=== PATIENT | male | born 1940 | race Caucasian/White ===

== ENCOUNTER 2020-09-21 17:02 | Emergency (ER) | payer BC ==
[2020-09-21] MEDS ORDERED: Iopamidol 612 MG/ML 100 ML Bottle ONE (18:03)
[2020-09-21] MEDS ORDERED: Sodium Chloride 0.9% 500 ML IV SCH (18:15)
[2020-09-21 18:52] VITALS: BP 132/68; PULSE 82
--- NOTE | 2020-09-21 19:16 | EDM.PDOC ---
ED HPI GENERAL MEDICAL PROBLEM - General Chief Complaint: General Stated Complaint: Coughing Up Blood Time Seen by Provider: 09/21/20 17:15 Source of Information: Reports: Patient, [facility] Records - History of Present Illness INITIAL COMMENTS - FREE TEXT/NARRATIVE: Pt states he coughed up blood several times over past few weeks No fever No chest pain Has been seen as oupt for transfusions over past several days for anemia of unknown etiology Has been referred to oncology and GI Onset: Gradual Duration: Week(s):, Intermittent Location: Reports: Chest - Related Data Allergies Allergy/AdvReac Type Severity Reaction Status Date / Time lisinopril Allergy Cannot Verified 09/21/20 17:14 Remember Penicillins Allergy Cannot Verified 09/21/20 17:14 Remember Home Meds: Home Meds Acetaminophen 2 tab PO Q4HR PRN 09/20/20 [History] Aloe Vera/Sodium Chloride [[place] Saline Nasal Gel] 1 spray NASBOTH DAILY PRN 09/20/20 [History] Aspirin [Aspirin EC] 1 tab PO DAILY 09/20/20 [History] Baclofen 1 tab PO TID 09/20/20 [History] Budesonide/Formoterol Fumarate [Symbicort 160-4.5 Mcg Inhaler] 2 inh PO BID 09/20/20 [History] Carboxymethylcellulose/Lytes [[place]shan-Stir Oral [place]] 1 spray PO DAILY PRN 09/20/20 [History] Docusate Sodium [Colace] 1 tab PO DAILY PRN 09/20/20 [History] Ferrous Sulfate 2 tab PO BID 09/20/20 [History] Finasteride 1 tab PO DAILY 09/20/20 [History] Fluticasone Propionate [Flovent] 1 spray NASBOTH DAILY 09/20/20 [History] Gabapentin [Neurontin] 1 cap PO DAILY 09/20/20 [History] Insulin Aspart [NovoLOG] 10 units SUBCUT DAILY 09/20/20 [History] Insulin Detemir [Levemir] 54 units SUBCUT DAILY 09/20/20 [History] Insulin Detemir [Levemir] 64 units SUBCUT DAILY 09/20/20 [History] Levothyroxine [Synthroid] 1 tab PO DAILY 09/20/20 [History] Loperamide HCl [Imodium A-D] 1 - 2 tab PO DAILY PRN 09/20/20 [History] Losartan [Cozaar] 1 tab PO DAILY 09/20/20 [History] Mirtazapine 1 tab PO DAILY 09/20/20 [History] Non-Formulary Medication [NF Drug] 3 cap PO Q30D 09/20/20 [History] Propylene Glycol/Peg 400 [Systane Ultra 0.4-0.3% Eye Drp] 1 drop EYEBOTH QID 09/20/20 [History] Tamsulosin [Flomax] 1 cap PO DAILY 09/20/20 [History] Venlafaxine [Effexor] 1 tab PO DAILY 09/20/20 [History] amLODIPine [Norvasc] 1 tab PO DAILY 09/20/20 [History] atorvaSTATin [Lipitor] 1 tab PO DAILY 09/20/20 [History] bisacodyL [Bisacodyl] 1 - 2 tab PO DAILY PRN 09/20/20 [History] buPROPion HCL [Wellbutrin Xl] 1 tab PO DAILY 09/20/20 [History] carvediloL [Carvedilol] 1 tab PO BID 09/20/20 [History] cloNIDine [Catapres] 1 tab PO TID 09/20/20 [History] guaiFENesin/Dextromethorphan [Tussin Dm Syrup] 10 ml PO Q4H 09/20/20 [History] oxyCODONE 1 tab PO Q6HR PRN 09/20/20 [History] polyethylene glycoL 3350 [MiraLAX] 1 dose PO DAILY PRN 09/20/20 [History] rOPINIRole [Requip] 0.5 mg PO DAILY 09/20/20 [History] traZODone HCl [Trazodone HCl] 1 tab PO DAILY 09/20/20 [History] Past Medical History HEENT History: Reports: Hard of Hearing Cardiovascular History: Reports: High Cholesterol, Hypertension Respiratory History: Reports: COPD, Sleep Apnea Genitourinary History: Reports: Chronic Renal Insuffiency Endocrine/Metabolic History: Reports: Diabetes, Type II Dermatologic History: Reports: Seborrheic Dermatitis Social & Family History - Caffeine Use Caffeine Use: Reports: Coffee ED ROS GENERAL - Review of Systems Review Of Systems: See Below HEENT: Reports: No Symptoms Respiratory: Reports: Hemoptysis Cardiovascular: Reports: No Symptoms GI/Abdominal: Reports: No Symptoms ED EXAM, GENERAL - Physical Exam Exam: See Below General Appearance: Alert, WD/WN, No Apparent Distress Throat/Mouth: Other (OP with old blood) Neck: Supple Respiratory/Chest: Decreased Breath Sounds Cardiovascular: Regular Rate, Rhythm GI/Abdominal: Soft, Non-Tender Course - Vital Signs Last Recorded V/S: Last Vital Signs Temp 97.6 F 09/21/20 18:52 Pulse 82 09/21/20 18:52 Resp 17 09/21/20 18:52 BP 132/68 09/21/20 18:52 Pulse Ox 100 09/21/20 18:52 - Orders/Labs/Meds Orders: Active Orders 24 hr Category Date Time Status CXR [Chest 2V] [CR] Stat Exams 09/21/20 17:03 Taken Chest w Cont [CT] Stat Exams 09/21/20 17:54 Taken Sodium Chloride 0.9% [Normal Saline] 500 ml Med 09/21/20 18:15 Active IV .BOLUS Medication Orders Sodium Chloride (Normal Saline) 500 mls @ 1,000 mls/hr IV .BOLUS MARLEN Last Admin: 09/21/20 18:36 Dose: 1,000 mls/hr Documented by: FRANCINE Labs: Laboratory Tests 09/21/20 09/21/20 09/21/20 Range/Units 17:29 17:29 17:29 WBC 11.8 H (4.0-10.2) K/uL RBC 3.90 L (4.33-5.41) M/uL Hgb 10.7 L D (13.1-16.8) g/dL Hct 34.5 L (39.0-49.0) % MCV 88.5 (84.0-98.0) fL MCH 27.4 L (28.2-33.3) pg MCHC 31.0 L (31.7-36.0) g/dL RDW 16.6 H (11.2-14.1) % Plt Count 302 (150-350) K/uL Neut % (Auto) 79.0 (45.0-80.0) % Lymph % (Auto) 10.8 (10.0-50.0) % [place] % (Auto) 8.0 (2.0-14.0) % Eos % (Auto) 1.9 (0.0-5.0) % Baso % (Auto) 0.3 (0.0-2.0) % Neut # (Auto) 9.36 H (1.40-7.00) K/uL Lymph # (Auto) 1.28 (0.50-3.50) K/uL [place] # (Auto) 0.95 (0.00-1.00) K/uL Eos # (Auto) 0.22 (0.00-0.50) K/uL Baso # (Auto) 0.03 (0.00-0.20) K/uL PT 10.0 (9.5-12.0) SEC INR 1.0 Sodium 138 (136-145) mmol/L Potassium 4.8 (3.5-5.1) mmol/L Chloride 103 (98-107) mmol/L Carbon Dioxide 27.3 (21.0-32.0) mmol/L BUN 23 H (7-18) mg/dL Creatinine 1.18 H (0.51-1.17) mg/dL Est Cr Clr Drug Dosing 53.27 mL/min Estimated GFR (MDRD) 60 mL/min Glucose 332 H (74-106) mg/dL Calcium 9.0 (8.5-10.1) mg/dL Meds: Medications Generic Name Dose Route Start Last Admin Trade Name Freq PRN Reason Stop Dose Admin Sodium Chloride 500 mls @ 1,000 mls/hr 09/21/20 18:15 09/21/20 18:36 Normal Saline IV 1,000 mls/hr .BOLUS MARLEN Administration Discontinued Medications Generic Name Dose Route Start Last Admin Trade Name Freq PRN Reason Stop Dose Admin Iopamidol Confirm 09/21/20 18:03 09/21/20 18:33 Isovue-300 (61%) Administered 09/21/20 18:04 100 ml Dose Administration 100 ml .ROUTE .STK-MED ONE - Re-Assessments/Exams Free Text/Narrative Re-Assessment/Exam: 09/21/20 19:[address] report Departure - Departure Time of Disposition: 19:15 Disposition: DC/Tfer to SNF 03 Clinical Impression: Hemoptysis - Discharge Information *PRESCRIPTION DRUG MONITORING PROGRAM REVIEWED*: Not Applicable *COPY OF PRESCRIPTION DRUG MONITORING REPORT IN PATIENT [place]: Not Applicable Instructions: Hemoptysis, [id number] Referrals: Harriet Emmanuel PA [Primary Care Provider] - Additional Instructions: Usual provider to review CT report to determine further evaluation Sepsis Event Note (ED) - Evaluation Sepsis Screening Result: No Definite Risk - Focused Exam Vital Signs: Vital Signs Temp Pulse Resp BP Pulse Ox 09/21/20 18:52 97.6 F 82 17 132/68 100 09/21/20 17:30 97.5 F 91 17 155/72 H 99 - My Orders Last 24 Hours: My Active Orders 09/21/20 17:03 CXR [Chest 2V] [CR] Stat 09/21/20 17:54 Chest w Cont [CT] Stat 09/21/20 18:15 Sodium Chloride 0.9% [Normal Saline] 500 ml IV .BOLUS - Assessment/Plan Last 24 Hours: My Active Orders 09/21/20 17:03 CXR [Chest 2V] [CR] Stat 09/21/20 17:54 Chest w Cont [CT] Stat 09/21/20 18:15 Sodium Chloride 0.9% [Normal Saline] 500 ml IV .BOLUS
== END 2020-09-21 20:15 ==
LOC: LL.ED 17:02
DX: R04.2 Hemoptysis (principal); E78.00 Pure hypercholesterolemia, unspecified; J44.9 Chronic obstructive pulmonary disease, unspecified; I12.9 Hypertensive chronic kidney disease with stage 1 through stage 4 chronic kidney disease, or unspecified chronic kidney disease; N18.9 Chronic kidney disease, unspecified; E11.22 Type 2 diabetes mellitus with diabetic chronic kidney disease; Z88.8 Allergy status to other drugs, medicaments and biological substances; Z88.0 Allergy status to penicillin; Z79.82 Long term (current) use of aspirin; Z79.4 Long term (current) use of insulin
CPT/HCPCS: 36415; 71046; 71260; 80048; 85025; 85610; 99283; 99285-25; J7040; Q9967

== ENCOUNTER 2021-11-11 11:03 | Emergency (ER) | payer BC, OTHER | END 2021-11-11 13:50 | disposition home or self-care (01) | LOC: LL.ED 11:03 | DX: S49.91XA Unspecified injury of right shoulder and upper arm, initial encounter (principal); E78.00 Pure hypercholesterolemia, unspecified; I12.9 Hypertensive chronic kidney disease with stage 1 through stage 4 chronic kidney disease, or unspecified chronic kidney disease; E11.22 Type 2 diabetes mellitus with diabetic chronic kidney disease; J44.9 Chronic obstructive pulmonary disease, unspecified; N18.9 Chronic kidney disease, unspecified; Z88.0 Allergy status to penicillin; Z88.8 Allergy status to other drugs, medicaments and biological substances; Z79.82 Long term (current) use of aspirin; Z79.4 Long term (current) use of insulin; Z79.899 Other long term (current) drug therapy; Z87.891 Personal history of nicotine dependence; W18.30XA Fall on same level, unspecified, initial encounter; Y92.129 Unspecified place in nursing home as the place of occurrence of the external cause | CPT/HCPCS: 72072; 73030-RT; 99284 ==

== ENCOUNTER 2022-01-23 19:15 | Emergency (ER) | payer BC, OTHER ==
[2022-01-23] MEDS ORDERED: Ketorolac 15 MG/ML SDV IM ONE (19:34)
== END 2022-01-23 20:00 ==
LOC: LL.ED 19:15
DX: M54.16 Radiculopathy, lumbar region (principal); I12.9 Hypertensive chronic kidney disease with stage 1 through stage 4 chronic kidney disease, or unspecified chronic kidney disease; N18.30 Chronic kidney disease, stage 3 unspecified; E78.00 Pure hypercholesterolemia, unspecified; J44.9 Chronic obstructive pulmonary disease, unspecified; E11.9 Type 2 diabetes mellitus without complications; Z88.8 Allergy status to other drugs, medicaments and biological substances; Z88.0 Allergy status to penicillin; Z79.4 Long term (current) use of insulin; Z79.899 Other long term (current) drug therapy
CPT/HCPCS: 96372; 99283-25; J1885

== ENCOUNTER 2022-01-26 06:28 | Emergency (ER) | payer BC, OTHER ==
[2022-01-26 07:42] LABS: ANION GAP 13.1 meq/L (7-15)
[2022-01-26] MEDS: Ketorolac 15 MG/ML SDV IM ONE (08:12)
== END 2022-01-26 08:55 ==
LOC: LL.ED 06:28
DX: M54.16 Radiculopathy, lumbar region (principal); I12.9 Hypertensive chronic kidney disease with stage 1 through stage 4 chronic kidney disease, or unspecified chronic kidney disease; E11.22 Type 2 diabetes mellitus with diabetic chronic kidney disease; N18.9 Chronic kidney disease, unspecified; J44.9 Chronic obstructive pulmonary disease, unspecified; Z87.891 Personal history of nicotine dependence; Z79.82 Long term (current) use of aspirin; Z79.4 Long term (current) use of insulin; Z79.899 Other long term (current) drug therapy; Z88.0 Allergy status to penicillin; Z88.8 Allergy status to other drugs, medicaments and biological substances
CPT/HCPCS: 36415; 80053; 96372; 99283; J1885

== ENCOUNTER 2022-01-27 22:11 | Emergency (ER) | payer BC, OTHER ==
[2022-01-27] MEDS ORDERED: Naloxone 0.4 MG/ML SDV IVPUSH ONE (23:08)
[2022-01-27 23:10] LABS: ANION GAP 7.8 meq/L (7-15)
[2022-01-27] MEDS: Sodium Chloride 0.9% 10 ML Syringe FLUSH PRN ×2 (23:14→23:29)
[2022-01-27] MEDS ORDERED: Azithromycin 500 MG in Sodium Chloride 0.9% 250 ML IV ONE (23:18)
[2022-01-27] MEDS ORDERED: Furosemide 40 MG/4 ML VIAL IVPUSH ONE (23:20)
== END 2022-01-28 01:15 ==
LOC: LL.ED 22:11 → SUPCPDRO 22:11 → LL.ED 01-28 01:15
DX: J44.1 Chronic obstructive pulmonary disease with (acute) exacerbation (principal); M54.16 Radiculopathy, lumbar region; I11.0 Hypertensive heart disease with heart failure; I50.33 Acute on chronic diastolic (congestive) heart failure; E78.00 Pure hypercholesterolemia, unspecified; E11.9 Type 2 diabetes mellitus without complications; Z87.891 Personal history of nicotine dependence; Z88.0 Allergy status to penicillin; Z88.8 Allergy status to other drugs, medicaments and biological substances; Z79.4 Long term (current) use of insulin; Z79.899 Other long term (current) drug therapy
CPT/HCPCS: 36415; 71045; 80053; 81001; 83605; 83735; 83880; 84484; 85025; 87086; 87088; 93005; 93010; 94761; 96365; 96375; 99284; 99284-25; J0456; J1940; J2310; J3490; J7050

== ENCOUNTER 2022-01-29 14:42 | Emergency (ER) | payer BC, OTHER ==
[2022-01-29] MEDS ORDERED: Aspirin 81 MG Tab.Chew PO ONE (15:13)
[2022-01-29] MEDS ORDERED: Morphine 2 MG/ML SYRINGE IVPUSH ONE (15:45)
[2022-01-29] MEDS ORDERED: Ondansetron 4 MG/2 ML SDV IVPUSH ONE (15:46)
[2022-01-29] MEDS ORDERED: cefTRIAXone 1 GM in Sodium Chloride 0.9% 100 ML IV ONE (16:27)
[2022-01-29] MEDS: Sodium Chloride 0.9% 10 ML Syringe FLUSH PRN ×3 (16:34→18:35)
[2022-01-29] MEDS ORDERED: Lidocaine 2% HCl 11 ML Jelly Filled Syringe TOP ONE (16:41)
[2022-01-29] MEDS: Saliva Substitute Oral Spray 120 ML Bottle MUCMEM PRN ×2 (16:47→17:06)
[2022-01-29] MEDS: Azithromycin 500 MG in Sodium Chloride 0.9% 250 ML IV ONE ×2 (17:15→18:41)
[2022-01-29 17:52] LABS: CORONAVIRUS COVID-19 NAA NEGATIVE (NEGATIVE); RESPIRATORY SYNCYTIAL VIR NAA NEGATIVE (NEGATIVE)
[2022-01-29] MEDS ORDERED: oxyCODONE 5 MG Tab PO ONE (18:05)
[2022-01-29] MEDS ORDERED: Morphine 4 MG/ML Syringe IVPUSH ONE (18:05)
== END 2022-01-29 19:10 ==
LOC: LL.ED 14:42
DX: J18.9 Pneumonia, unspecified organism (principal); M54.16 Radiculopathy, lumbar region; E78.00 Pure hypercholesterolemia, unspecified; J44.9 Chronic obstructive pulmonary disease, unspecified; I10 Essential (primary) hypertension; E11.9 Type 2 diabetes mellitus without complications; Z79.899 Other long term (current) drug therapy; Z79.4 Long term (current) use of insulin; Z20.822 Contact with and (suspected) exposure to COVID-19; Z88.0 Allergy status to penicillin; Z88.8 Allergy status to other drugs, medicaments and biological substances
CPT/HCPCS: 0241U; 36415; 51702; 81001; 83605; 83735; 87040; 87186; 96365; 96375; 96376; 99284; 99284-25; A9270-GY; J0456; J0696; J2270; J2405; J3490; J7050

== ENCOUNTER 2022-02-09 12:11 | Emergency (ER) | payer OTHER, BC ==
[2022-02-09] MEDS ORDERED: Sodium Chloride 0.9% 10 ML Syringe FLUSH PRN (12:13)
[2022-02-09] MEDS ORDERED: levETIRAcetam in NaCl (iso-os) 1,500 MG in Premix Bag 1 BAG IV ONE ×2 (12:48)
[2022-02-09 13:18] LABS: PTT,PARTIAL THROMBOPLSTIN TIME 29.6 SEC (23.6-29.8)
[2022-02-09 13:23] LABS: ANION GAP 6.2 meq/L (7-15); CHLORIDE,CL 102 mmol/L (98-107); SODIUM,NA 137 mmol/L (136-145)
[2022-02-09 13:29] LABS: ESTIMATED GFR 39 mL/min
[2022-02-09] MEDS ORDERED: Morphine 4 MG/ML Syringe ONE (13:48)
[2022-02-09] MEDS ORDERED: Ondansetron 4 MG/2 ML SDV ONE (13:48)
[2022-02-09] MEDS ORDERED: Morphine 4 MG/ML Syringe IVPUSH ONE (13:58)
[2022-02-09] MEDS ORDERED: Ondansetron 4 MG/2 ML SDV IVPUSH ONE (13:58)
== END 2022-02-09 13:55 ==
LOC: LL.ED 12:11
DX: I63.9 Cerebral infarction, unspecified (principal); E78.00 Pure hypercholesterolemia, unspecified; J44.9 Chronic obstructive pulmonary disease, unspecified; I12.9 Hypertensive chronic kidney disease with stage 1 through stage 4 chronic kidney disease, or unspecified chronic kidney disease; E11.22 Type 2 diabetes mellitus with diabetic chronic kidney disease; N18.9 Chronic kidney disease, unspecified; Z88.0 Allergy status to penicillin; Z88.8 Allergy status to other drugs, medicaments and biological substances; Z79.899 Other long term (current) drug therapy; Z79.4 Long term (current) use of insulin
CPT/HCPCS: 36415; 70450; 80053; 82947; 84484; 85025; 85610; 85730; 93005; 96365; 99284; 99285-25; J1953; J2270; J2405; J3490